=== PATIENT | female | born 1945 | race Hispanic/Latino ===

== ENCOUNTER 2018-02-19 08:24 | Emergency (ER) | payer MEDICARE, OTHER ==
[2018-02-19 09:18] LABS: Bilirubin Negative (Negative); Blood, Urine Negative (Negative); Clarity CLEAR (Clear); Glucose, Urine (Dipstick) 100 mg/dL (Negative); Leukocyte Negative (Negative); Nitrite Negative (Negative); Protein, Urine (Dipstick) Negative (Neg-Trace); Specific Gravity, Urine 1.012 (1.002-1.036); Urobilinogen 0.2 mg/dL (0.2-1.0); pH, Urine 5.5 (5.0-9.0)
--- NOTE | 2018-02-19 10:02 | RAD ---
3 VIEWS LUMBAR SPINE: Date: 02/19/18 INDICATION: Low back pain, feels like pinched nerve. FINDINGS: There are five lumbar-type vertebrae. There is an age-indeterminate end plate compression abnormality of L2. Spinal alignment is preserved. There are vascular calcifications present. There is diffuse osteopenia. There are scattered phleboliths within the expected position of the left gonadal vein. IMPRESSION: 1. Age-indeterminate inferior and superior end plate compression abnormality at L2. This was not pre sent on CT of the chest/abdomen/pelvis dated 09/25/08. 2. 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 POS: [facility]
--- NOTE | 2018-02-19 10:03 | RAD ---
2 VIEWS THORACIC SPINE: Date; 02/19/18 INDICATION: Low back pain. COMPARISON: None. FINDINGS: No acute fracture or subluxation is evident. There is moderate multilevel disc degenerative disease. There is mild cardiomegaly seen on the AP projection. IMPRESSION: Moderate multilevel spondylosis of the thoracic spine. POS: [facility]
== END 2018-02-19 10:56 | disposition home or self-care (01) ==
LOC: ERS 08:24
DX: S39.012A Strain of muscle, fascia and tendon of lower back, initial encounter (principal); E11.9 Type 2 diabetes mellitus without complications; X58.XXXA Exposure to other specified factors, initial encounter
CPT/HCPCS: 72072; 72100; 81003

== ENCOUNTER 2023-03-14 04:36 | Inpatient (IN) | payer MEDICARE ==
[2023-03-14] MEDS ORDERED: Nitroglycerin 2% Ointment 1 INCH/1 GM Packet ONE (04:54)
[2023-03-14 05:37] LABS: #Eosinphils 0.3 thou/uL (0.0-0.7); #Lymphocytes 1.9 thou/uL (1.20-3.40); #Monocytes 0.7 thou/uL (0.11-0.59); #Neutrophils 9.1 thou/uL (1.40-6.50); %Basophils 0.3 % (0.0-1.0); %Eosinophils 2.8 % (0.0-10.0); %Lymphocytes 15.7 % (21.0-51.0); %Neutrophils 75.3 % (42.0-75.0); Hemoglobin 8.5 g/dL (12.0-16.0); Mean Corpuscular HGB CONC 34.4 g/dL (32.0-36.0); Mean Corpuscular Hemoglobin 31.4 pg (27.0-31.0); Mean Corpuscular Volume 91.3 fl (78.0-98.0); Mean Platelet Volume 9.2 fL (7.4-10.4); Platelet Count 185 10x3/uL (130-400); RBC Distribution Width 12.7 % (11.5-14.5); Red Blood Cell (RBC) Count 2.69 mill/uL (4.20-5.40); White Blood Cell (WBC) Count 12.1 10x3/uL (4.8-10.8)
[2023-03-14 05:57] LABS: ALT (SGPT) 30 U/L (8-55); AST (SGOT) 37 U/L (5-34); Albumin 3.3 g/dL (3.4-4.8); Alkaline Phosphatase 97 U/L (40-110); Anion Gap 12 mmol/L (10-20); BUN (Urea Nitrogen) 60 mg/dL (9.8-20.1); Bilirubin, Total 0.3 mg/dL (0.2-1.2); Calc. Creatinine Clearance 0 mL/min (70-130); Carbon Dioxide 21 mmol/L (23-31); Chloride 104 mmol/L (98-107); Estimated GFR 16; Globulin 2.7 g/dL (2.4-3.5); Glucose 159 mg/dL (83-110); Potassium 4.5 mmol/L (3.5-5.1); Sodium 132 mmol/L (136-145)
[2023-03-14] MEDS ORDERED: hydrALAZINE 20 MG/ML VIAL ONE (06:35)
[2023-03-14] MEDS ORDERED: Furosemide 40 MG/4 ML VIAL SLOW IVP SCH (10:15)
[2023-03-14] MEDS ORDERED: EPOETIN ALFA-EPBX (ESRD) 10,000 UNITS/ML VIAL SC SCH (10:45)
[2023-03-14] MEDS ORDERED: Insulin Regular 300 UNITS/3 ML VIAL SC PRN (11:03)
[2023-03-14] MEDS ORDERED: Dextrose 50% Abboject 50 ML SYRINGE SLOW IVP PRN (11:03)
[2023-03-14] MEDS ORDERED: Dextrose 5% in Water 1,000 ML IV PRN (11:03)
[2023-03-14] MEDS ORDERED: Nitroglycerin 0.4 MG TAB (25 Tab Bottle) SL PRN (11:03)
[2023-03-14] MEDS ORDERED: Ondansetron ODT 4 MG TAB PO PRN (11:05)
[2023-03-14] MEDS ORDERED: Calcium Carbonate 500 MG ChewTAB PO PRN (11:05)
[2023-03-14] MEDS ORDERED: Acetaminophen 325 MG TAB PO PRN (11:05)
[2023-03-14] MEDS ORDERED: Ondansetron PF 4 MG/2 ML Vial IVP PRN (11:05)
[2023-03-14] MEDS ORDERED: Furosemide 40 MG/4 ML VIAL ONE (11:07)
[2023-03-14 12:15] LABS: Troponin I 0.117 ng/mL (< 0.028)
[2023-03-14 14:22] LABS: Bacteria/HPF None Seen HPF (None Seen); Bilirubin Negative (Negative); Blood, Urine Trace (Negative); Clarity Clear (Clear); Glucose, Urine (Dipstick) 50 mg/dL (Negative); Ketone, Urine Negative (Negative); Leukocyte 75 Leu/uL (Negative); Nitrite Negative (Negative); Protein, Urine (Dipstick) 200 mg/dL (Neg-Trace); Squamous Epithelial 0-3 HPF (0-3); Urobilinogen Normal mg/dL (Less than 2)
[2023-03-14 14:39] LABS: Amphetamine Not Detected (NotDetected); Barbiturates Screen Not Detected (NotDetected); Benzodiazepine Screen Not Detected (NotDetected); Cocaine Metabolite Screen Not Detected (NotDetected); Methadone Not Detected (NotDetected); Methamphetamine Not Detected (NotDetected); Opiate Screen Not Detected (NotDetected); Oxycodone Screen Not Detected (NotDetected); Phencyclidine (PCP) Not Detected (NotDetected); THC/Cannabinoid Screen Not Detected (NotDetected); Tricyclic Screen Not Detected (NotDetected)
[2023-03-14] MEDS ORDERED: hydrALAZINE 25 MG TAB ONE (15:18)
[2023-03-14] MEDS: Heparin 5,000 UNITS/ML VIAL SC SCH ×2 (17:25→21:25)
[2023-03-14] MEDS: hydrALAZINE 25 MG TAB PO SCH ×2 (17:25→21:25)
[2023-03-14] MEDS: Amlodipine 5 MG TAB PO SCH (20:37)
[2023-03-14] MEDS: Atorvastatin Calcium 40 MG TAB PO SCH (20:37)
[2023-03-14] MEDS: Furosemide 40 MG/4 ML VIAL SLOW IVP SCH (20:38)
[2023-03-14] MEDS: Doxazosin Mesylate 4 MG TAB PO SCH (20:38)
[2023-03-14] MEDS: cloNIDine 0.3 MG TAB PO SCH (21:24)
[2023-03-15] MEDS: hydrALAZINE 25 MG TAB PO SCH ×3 (05:32→22:01)
[2023-03-15] MEDS: cloNIDine 0.3 MG TAB PO SCH ×3 (05:32→22:03)
[2023-03-15] MEDS: Heparin 5,000 UNITS/ML VIAL SC SCH ×3 (05:33→22:06)
[2023-03-15 07:16] LABS: #Eosinphils 0.3 thou/uL (0.0-0.7); #Lymphocytes 2.4 thou/uL (1.20-3.40); #Monocytes 0.6 thou/uL (0.11-0.59); #Neutrophils 5.4 thou/uL (1.40-6.50); %Basophils 0.3 % (0.0-1.0); %Eosinophils 3.5 % (0.0-10.0); %Lymphocytes 27.2 % (21.0-51.0); %Monocytes 7.3 % (0.0-10.0); %Neutrophils 61.8 % (42.0-75.0); Mean Corpuscular HGB CONC 35.4 g/dL (32.0-36.0); Mean Corpuscular Hemoglobin 32.4 pg (27.0-31.0); Mean Corpuscular Volume 91.4 fl (78.0-98.0); Mean Platelet Volume 10.1 fL (7.4-10.4); Platelet Count 195 10x3/uL (130-400); RBC Distribution Width 12.9 % (11.5-14.5); Red Blood Cell (RBC) Count 2.48 mill/uL (4.20-5.40); White Blood Cell (WBC) Count 8.8 10x3/uL (4.8-10.8)
[2023-03-15] MEDS: Aspirin 81 mg Enteric Coated Tablet PO SCH (08:15)
[2023-03-15] MEDS: Furosemide 40 MG/4 ML VIAL SLOW IVP SCH ×2 (08:15→22:03)
[2023-03-15] MEDS: Amlodipine 5 MG TAB PO SCH ×2 (08:15→22:04)
[2023-03-15] MEDS: Calcitriol 0.25 MCG CAP PO SCH (08:15)
[2023-03-15 08:20] LABS: Anion Gap 16 mmol/L (10-20); BUN (Urea Nitrogen) 64 mg/dL (9.8-20.1); Calc. Creatinine Clearance 22 mL/min (70-130); Calcium 8.1 mg/dL (7.8-10.44); Carbon Dioxide 18 mmol/L (23-31); Chloride 105 mmol/L (98-107); Estimated GFR 16; Glucose 111 mg/dL (83-110); Magnesium 1.3 mg/dL (1.6-2.6); Potassium 4.1 mmol/L (3.5-5.1); Sodium 135 mmol/L (136-145)
[2023-03-15 13:30] LABS: Bacteria/HPF None Seen HPF (None Seen); Bilirubin Negative (Negative); Blood, Urine Negative (Negative); Clarity Clear (Clear); Glucose, Urine (Dipstick) Normal (Negative); Ketone, Urine Negative (Negative); Leukocyte Negative Leu/uL (Negative); Nitrite Negative (Negative); Protein, Urine (Dipstick) 100 mg/dL (Neg-Trace); RBC/HPF 0-3 HPF (0-3); Specific Gravity, Urine 1.007 (1.002-1.036); Squamous Epithelial None Seen HPF (0-3); Urobilinogen Normal mg/dL (Less than 2); WBC/HPF 0-3 HPF (0-3); pH, Urine 5.5 (5.0-9.0)
[2023-03-15] MEDS ORDERED: hydrALAZINE 25 MG TAB PO SCH (15:00)
[2023-03-15] MEDS: Insulin Regular 300 UNITS/3 ML VIAL SC PRN (17:25)
[2023-03-15] MEDS: Atorvastatin Calcium 40 MG TAB PO SCH (22:03)
[2023-03-15] MEDS: Insulin Glargine 30 UNITS/0.3 ML VIAL SC SCH (22:04)
[2023-03-15] MEDS: Doxazosin Mesylate 4 MG TAB PO SCH (22:05)
[2023-03-15] MEDS ORDERED: Senokot S 8.6-50 MG TAB PO PRN (23:06)
[2023-03-15] MEDS ORDERED: Bisacodyl 5 MG TAB PO PRN (23:06)
[2023-03-16 05:58] LABS: Iron 38 ug/dL (50-170); Iron Binding Capacity, Total 214 mcg/dL (265-497)
[2023-03-16 05:59] LABS: ALT (SGPT) 18 U/L (8-55); AST (SGOT) 13 U/L (5-34); Alkaline Phosphatase 76 U/L (40-110); Anion Gap 13 mmol/L (10-20); BUN (Urea Nitrogen) 70 mg/dL (9.8-20.1); Bilirubin, Total 0.4 mg/dL (0.2-1.2); Calc. Creatinine Clearance 20 mL/min (70-130); Calcium 8.2 mg/dL (7.8-10.44); Carbon Dioxide 21 mmol/L (23-31); Chloride 105 mmol/L (98-107); Estimated GFR 14; Globulin 2.5 g/dL (2.4-3.5); Glucose 147 mg/dL (83-110); Iron 38 ug/dL (50-170); Iron Binding Capacity, Total 215 mcg/dL (265-497); Potassium 4.2 mmol/L (3.5-5.1); Protein, Total 5.5 g/dL (5.8-8.1); Sodium 135 mmol/L (136-145)
[2023-03-16] MEDS: cloNIDine 0.3 MG TAB PO SCH ×3 (06:14→20:49)
[2023-03-16] MEDS: Heparin 5,000 UNITS/ML VIAL SC SCH ×3 (06:14→20:50)
[2023-03-16 06:35] LABS: Hemoglobin 8.1 g/dL (12.0-16.0); Mean Corpuscular HGB CONC 36.4 g/dL (32.0-36.0); Mean Corpuscular Hemoglobin 32.5 pg (27.0-31.0); Mean Corpuscular Volume 89.5 fl (78.0-98.0); Platelet Count 183 10x3/uL (130-400); RBC Distribution Width 12.9 % (11.5-14.5); Red Blood Cell (RBC) Count 2.49 mill/uL (4.20-5.40); White Blood Cell (WBC) Count 10.4 10x3/uL (4.8-10.8)
[2023-03-16] MEDS: hydrALAZINE 25 MG TAB PO SCH ×3 (09:15→21:02)
[2023-03-16] MEDS: Calcitriol 0.25 MCG CAP PO SCH (09:15)
[2023-03-16] MEDS: Amlodipine 5 MG TAB PO SCH ×2 (09:15→20:49)
[2023-03-16] MEDS: Insulin Glargine 30 UNITS/0.3 ML VIAL SC SCH ×2 (09:16→20:50)
[2023-03-16] MEDS: Aspirin 81 mg Enteric Coated Tablet PO SCH (09:16)
[2023-03-16] MEDS: Atorvastatin Calcium 40 MG TAB PO SCH (20:50)
[2023-03-16] MEDS: Doxazosin Mesylate 4 MG TAB PO SCH (20:50)
[2023-03-16] MEDS: Insulin Regular 300 UNITS/3 ML VIAL SC PRN (21:05)
[2023-03-17 05:24] LABS: Hemoglobin 7.4 g/dL (12.0-16.0); Mean Corpuscular HGB CONC 35.1 g/dL (32.0-36.0); Mean Corpuscular Hemoglobin 31.5 pg (27.0-31.0); Mean Corpuscular Volume 89.7 fl (78.0-98.0); Mean Platelet Volume 9.7 fL (7.4-10.4); Platelet Count 177 10x3/uL (130-400); RBC Distribution Width 12.8 % (11.5-14.5); Red Blood Cell (RBC) Count 2.36 mill/uL (4.20-5.40); White Blood Cell (WBC) Count 9.3 10x3/uL (4.8-10.8)
[2023-03-17 05:40] LABS: Carbon Dioxide 20 mmol/L (23-31); Chloride 106 mmol/L (98-107); Sodium 136 mmol/L (136-145)
[2023-03-17 05:41] LABS: ALT (SGPT) 13 U/L (8-55); AST (SGOT) 13 U/L (5-34); Albumin 2.9 g/dL (3.4-4.8); Alkaline Phosphatase 83 U/L (40-110); Anion Gap 14 mmol/L (10-20); BUN (Urea Nitrogen) 68 mg/dL (9.8-20.1); Bilirubin, Total 0.2 mg/dL (0.2-1.2); Calc. Creatinine Clearance 20 mL/min (70-130); Calcium 8.2 mg/dL (7.8-10.44); Estimated GFR 14; Globulin 2.5 g/dL (2.4-3.5); Glucose 71 mg/dL (83-110); Phosphorus 4.7 mg/dL (2.3-4.7); Protein, Total 5.4 g/dL (5.8-8.1)
[2023-03-17] MEDS: Heparin 5,000 UNITS/ML VIAL SC SCH ×3 (06:03→22:18)
[2023-03-17] MEDS: cloNIDine 0.3 MG TAB PO SCH (06:04)
[2023-03-17] MEDS: hydrALAZINE 25 MG TAB PO SCH ×3 (09:10→22:19)
[2023-03-17] MEDS: Calcitriol 0.25 MCG CAP PO SCH (09:11)
[2023-03-17] MEDS: Amlodipine 5 MG TAB PO SCH ×2 (09:11→22:20)
[2023-03-17] MEDS: Aspirin 81 mg Enteric Coated Tablet PO SCH (09:11)
[2023-03-17] MEDS: Insulin Glargine 30 UNITS/0.3 ML VIAL SC SCH ×2 (09:12→22:21)
[2023-03-17] MEDS ORDERED: Dextrose 5% in Water 1,000 ML IV PRN (10:41)
[2023-03-17] MEDS ORDERED: HumaLOG 300 UNITS/3 ML VIAL SC PRN (10:41)
[2023-03-17] MEDS ORDERED: Dextrose 50% Abboject 50 ML SYRINGE SLOW IVP PRN (10:41)
[2023-03-17] MEDS ORDERED: Iron Sucrose Complex 200 MG in Sodium Chloride 0.9% 100 ML IVPB SCH (12:00)
[2023-03-17] MEDS ORDERED: Iron, Sodium Ferric Gluconate 250 MG in Sodium Chloride 0.9% 250 ML 250 ML IVPB SCH (12:15)
[2023-03-17] MEDS: Carvedilol 6.25 MG TAB PO SCH (16:38)
[2023-03-17] MEDS ORDERED: Furosemide 20 MG/2 ML VIAL IVP SCH (17:15)
[2023-03-17 18:09] LABS: Hemoglobin 7.7 g/dL (12.0-16.0)
[2023-03-17] MEDS ORDERED: cloNIDine 0.3 MG TAB PO SCH (21:00)
[2023-03-17] MEDS: Doxazosin Mesylate 4 MG TAB PO SCH (22:18)
[2023-03-17] MEDS: cloNIDine 0.2 MG TAB PO SCH (22:20)
[2023-03-17] MEDS: Atorvastatin Calcium 40 MG TAB PO SCH (22:20)
[2023-03-18 05:44] LABS: Hemoglobin 7.4 g/dL (12.0-16.0); Mean Corpuscular HGB CONC 34.7 g/dL (32.0-36.0); Mean Corpuscular Hemoglobin 31.3 pg (27.0-31.0); Mean Corpuscular Volume 90.2 fl (78.0-98.0); Mean Platelet Volume 9.7 fL (7.4-10.4); Platelet Count 185 10x3/uL (130-400); RBC Distribution Width 12.8 % (11.5-14.5); Red Blood Cell (RBC) Count 2.37 mill/uL (4.20-5.40); White Blood Cell (WBC) Count 8.6 10x3/uL (4.8-10.8)
[2023-03-18 06:03] LABS: ALT (SGPT) 16 U/L (8-55); AST (SGOT) 12 U/L (5-34); Albumin 2.9 g/dL (3.4-4.8); Alkaline Phosphatase 72 U/L (40-110); Anion Gap 14 mmol/L (10-20); BUN (Urea Nitrogen) 67 mg/dL (9.8-20.1); Bilirubin, Total 0.3 mg/dL (0.2-1.2); Calc. Creatinine Clearance 20 mL/min (70-130); Calcium 8.2 mg/dL (7.8-10.44); Carbon Dioxide 21 mmol/L (23-31); Chloride 104 mmol/L (98-107); Estimated GFR 14; Globulin 2.6 g/dL (2.4-3.5); Glucose 109 mg/dL (83-110); Protein, Total 5.5 g/dL (5.8-8.1); Sodium 135 mmol/L (136-145)
[2023-03-18 06:29] VITALS: BMI 35.0
[2023-03-18] MEDS: Heparin 5,000 UNITS/ML VIAL SC SCH ×2 (07:19→15:30)
[2023-03-18] MEDS: Carvedilol 6.25 MG TAB PO SCH (08:17)
[2023-03-18] MEDS: Aspirin 81 mg Enteric Coated Tablet PO SCH (08:18)
[2023-03-18] MEDS: Amlodipine 5 MG TAB PO SCH (08:18)
[2023-03-18] MEDS: Calcitriol 0.25 MCG CAP PO SCH (08:18)
[2023-03-18] MEDS: cloNIDine 0.2 MG TAB PO SCH (08:18)
[2023-03-18] MEDS: hydrALAZINE 25 MG TAB PO SCH ×2 (08:18→15:31)
[2023-03-18] MEDS: Insulin Glargine 30 UNITS/0.3 ML VIAL SC SCH (08:19)
[2023-03-18 16:15] VITALS: BP 158/58; TEMP 97.5
[2023-03-18] MEDS ORDERED: Carvedilol 6.25 MG TAB PO SCH (17:00)
[2023-03-18] MEDS ORDERED: cloNIDine 0.1 MG TAB PO SCH (21:00)
== END 2023-03-18 19:00 | disposition home or self-care (01) | DRG 70 ==
LOC: ERS 04:36 → ERHOLD 08:23 → NEURO 18:17 → OBSVTOIN 03-16 11:20
PROVIDERS: ADMIT Internal Medicine; ATTEND Hospitalist
PROC: 30233N1 Transfusion of Nonautologous Red Blood Cells into Peripheral Vein, Percutaneous Approach (ICD-10-PCS; principal; 2023-03-18)
DX: G93.41 Metabolic encephalopathy (principal); I50.33 Acute on chronic diastolic (congestive) heart failure; E87.1 Hypo-osmolality and hyponatremia; N17.9 Acute kidney failure, unspecified; E87.20 Acidosis, unspecified; N18.5 Chronic kidney disease, stage 5; I13.2 Hypertensive heart and chronic kidney disease with heart failure and with stage 5 chronic kidney disease, or end stage renal disease; I16.1 Hypertensive emergency; I16.0 Hypertensive urgency; E11.22 Type 2 diabetes mellitus with diabetic chronic kidney disease; D63.1 Anemia in chronic kidney disease; E78.5 Hyperlipidemia, unspecified; D46.9 Myelodysplastic syndrome, unspecified; E66.9 Obesity, unspecified; E88.09 Other disorders of plasma-protein metabolism, not elsewhere classified; I65.23 Occlusion and stenosis of bilateral carotid arteries; I08.0 Rheumatic disorders of both mitral and aortic valves; Z79.84 Long term (current) use of oral hypoglycemic drugs; Z68.35 Body mass index [BMI] 35.0-35.9, adult; Z91.148 Patient's other noncompliance with medication regimen for other reason; Z98.890 Other specified postprocedural states; Z82.49 Family history of ischemic heart disease and other diseases of the circulatory system; Z79.4 Long term (current) use of insulin; Z79.899 Other long term (current) drug therapy; Z79.82 Long term (current) use of aspirin; E11.649 Type 2 diabetes mellitus with hypoglycemia without coma; I27.29 Other secondary pulmonary hypertension
CPT/HCPCS: 36415; 36416; 36430; 70450; 70551; 71045; 80048; 80053; 80306; 81001; 81003; 81015; 82728; 83540; 83550; 83735; 83880; 84100; 84146; 84484; 85025; 85027; 86850; 86900; 86901; 93005; 93306; 93880; 96372; 96374; 96375; 96376; G0378; J0360; J1644; J1815; J1940; J2916; J7050; P9016; Q5105